=== PATIENT | male | born 1945 | race Caucasian/White ===

== ENCOUNTER 2024-04-05 22:21 | Emergency (ER) | payer MEDICARE, OTHER, SELFPAY ==
[2024-04-05 22:22] VITALS: BP 163/85
--- NOTE | 2024-04-05 23:50 | ED.GENMED ---
History of Present Illness
General
Chief Complaint: Skin Problem
Source: patient
Exam Limitations: none
Time Seen by Provider: 04/05/24 23:37
Travel History
Have you had any contact with someone who has COVID-19?: No
Do you have any symptoms of coronavirus? Fever > 100 degrees, chills, cough, shortness of breath, sore throat, loss of taste or smell, muscle aches, or headache?: No
History of Present Illness
History of Present Illness:
See MDM
Past History
Past History
ED Past Medical History: Arrthythmia (Atrial fib), CAD, HTN, Hypercholesterolemia and Other (sleep apnea, )
ED Past Surgical History: Cardiac (stent, Ablation) and Other (Fracture Jaw that was wired)
Social History
Tobacco: Non-smoker
Alcohol: None
Personal:
Living: with family
Phy Exam
Physical Exam
Physical Exam:
See MDM
Course
Orders/Labs/Results
Orders:
Orders
04/05/24 23:21
Complete Blood Count/With Diff Urgent
Comprehensive Metabolic Panel Urgent
04/06/24 00:00
US Periph Venous LOWER Ext Ivan Urgent
Reason For Exam: b/l leg swelling
Abnormal Lab Results
04/06/24
00:02
RBC 3.88 L 10^6/uL
(4.70-6.10)
Hgb 12.1 L g/dL
(13.0-18.0)
Hct 36.7 L %
(39.0-52.0)
MCV 94.6 H fL
(80.0-94.0)
MCH 31.2 H pg
(27.0-31.0)
Abs Immat Gran (auto) 0.1 H 10^3/uL
(0-0.05)
Absolute Monos (auto) 0.7 H 10^3/uL
(0.1-0.6)
Immature Gran % 0.7 H %
(0-0.5)
Lymphocytes % 19.7 L %
(20.5-51.1)
BUN 27 H mg/dl
(9-20)
04/06/24 00:02
04/06/24 00:02
Vital Signs
Initial and Last Documented VS:
Initial Vital Signs
Temp Pulse Resp BP Pulse Ox
98.7 F 78 16 163/85 99
04/05/24 22:22 04/05/24 22:22 04/05/24 22:22 04/05/24 22:22 04/05/24 22:22
Last Documented Vital Signs
Temp Pulse Resp BP Pulse Ox
98.7 F 78 16 163/85 99
04/05/24 22:22 04/05/24 22:22 04/05/24 22:22 04/05/24 22:22 04/05/24 22:22
MDM/Problems Addressed
Differential Diagnosis Includes:
HPI and MDM Narrative:
79-year-old male presenting with bilateral leg swelling. Patient received his first dose of Lecanemab on Tuesday to treat early onset dementia. He developed mild muscle aches and headache on Tuesday but symptoms resolved. He woke up this
morning with bilateral leg swelling and redness. He was started on emergency department to rule out DVT
at bedside stating that the redness to both legs has drastically improved without intervention over the past several hours.
Given the medicine and the side effect profile, will obtain ultrasound rule out DVT
Physical exam
General: Well appearing and non-toxic
HEENT: protecting airway
Neck: appears supple
CV: No evidence of cyanosis
Resp: No accessory muscle use
Abd: Non-distended
Extremities: mild erythema to bilateral calfs. Distal extremity is neurovascular intact
Neuro: alert
Psych: Normal affect
Skin: Intact
Problems Addressed including Acute and Chronic Conditions affecting care:
1. Bilateral calf tenderness and erythema
Acuity: acute
Prognosis: stable
Details: Likely related to medication side effect. Will obtain ultrasound rule DVT. Given rapidly resolving symptoms, doubt cellulitis
Updates
Ultrasound negative for DVT. Patient and daughter will follow-up with neurology tomorrow
Differential Diagnosis (but not limited to): Cellulitis, DVT, medication side effect
Testing considered: Blood cultures
Drug therapy (if applicable): OTC meds, please see d/c instruction regarding Rx drugs
Amount and/or Complexity of Data Reviewed
Clinical info obtained from: Patient. states symptoms are improving
External data reviewed: N/A
Labs I independently reviewed (but not limited to): WBC normal
Radiology: N/A
Pulse Ox: not hypoxic
EKG independently reviewed: N/A
Service Delivery Management Consultant: N/A
Critical Care: N/A
Risk of Complication:
Social Determinants of health: Good social support
Discussed with other providers: N/A
Escalation of Care includes Admit/Obs: After being observed in the Emergency Department, pt stable for discharge.
Occasional wrong word or 'sound a like' substitutions may have occurred due to the inherent limitations of voice recognition software. Read the chart carefully and recognize, using context, where substitutions have occurred.
*Critical Care Note
Total Time (30-74mins, 75-104mins- exclusive of procedures): Not Applicable
ED Attending Note
-
Portions of this chart may have been created with voice recognition software.� Occasional wrong word or��sound alike� substitutions may have occurred due to the inherent limitations of voice recognition software.
Discharge Plan
Departure
Patient Disposition: Home (Routine Discharge)
Date of Disposition: 04/06/24
Time of Disposition: 02:00
Patient with high blood pressure during this ER visit?: Yes
Discharge Problem:
Adverse effect of drug
Instructions: BLOOD PRESSURE
Prescriptions:
No Action
metoprolol succinate 50 MG tablet extended release 24 hr
50 mg PO BID
Patient Comments:
1/2 tab in am, 1/2 in pm
verapamil 180 MG tablet extended release
180 mg PO DAILY
aspirin 81 MG tablet,delayed release (DR/EC)
81 mg PO DAILY
warfarin 5 MG tablet
5 mg PO DAILY
magnesium oxide 250 MG tablet
250 mg PO
Patient Comments:
as directed
docosahexaenoic acid-epa 1 CAP capsule
1 cap PO
Patient Comments:
take as directed
ezetimibe-simvastatin 10 MG/40 MG tablet
1 tab PO DAILY
mm-xjs-IF-Vv-Rc-jpdrite-lutein 1 EACH tablet
1 tab PO DAILY
VITAMIN D
Patient Comments:
as directed
Referrals:
Lola Iniguez MD [Family Provider] -
Activity Restrictions/Additional Instructions:
As we discussed, I do not think it is an allergic reaction. I think he is having an adverse reaction to the drug. Please talk to the neurologist tomorrow. Please return for worsening symptoms.
Interventions
Interventions:
*Risk Screen - Suicide Last Done: 04/06/24 00:02
*General Assessment Last Done: 04/05/24 22:22
*Neglect/Abuse Screening Last Done: 04/06/24 00:02
Discharge Date and Time
Print Language: AMERICAN
[2024-04-06 00:24] LABS: ALT (SGPT) 18 U/L (0-50); AST (SGOT) 25 U/L (17-59); Albumin 3.9 g/dl (3.5-5.0); Alkaline Phosphatase 98 U/L (38-126); Blood Urea Nitrogen 27 mg/dl (9-20); Calcium 8.9 mg/dl (8.4-10.2); Carbon Dioxide 29 mmol/L (22-30); Chloride 103 mmol/L (98-107); Glucose 98 mg/dl (70-99); Potassium 4.3 mmol/L (3.5-5.1); Sodium 139 mmol/L (135-145); Total Bilirubin 0.8 mg/dl (0.2-1.3); Total Protein 6.9 g/dl (6.3-8.2); eGFR > 60.00
[2024-04-06 00:31] LABS: % Basophils 0.6 % (0-2); % Eosinophils 1.6 % (0-6); % Immature Granulocytes 0.7 % (0-0.5); % Lymphocytes 19.7 % (20.5-51.1); % Monocytes 8.5 % (1.7-9.3); % Neutrophils 68.9 % (42.2-75.2); Absolute Basophils 0.1 10^3/uL (0-0.2); Absolute Eosinophils 0.1 10^3/uL (0-0.7); Absolute Immature Granulocytes 0.1 10^3/uL (0-0.05); Absolute Lymphocytes 1.6 10^3/uL (1.2-3.4); Absolute Monocytes 0.7 10^3/uL (0.1-0.6); Absolute Neutrophils 5.6 10^3/uL (1.4-6.5); Hematocrit 36.7 % (39.0-52.0); Hemoglobin 12.1 g/dL (13.0-18.0); Mean Corpuscular Hgb 31.2 pg (27.0-31.0); Mean Corpuscular Volume 94.6 fL (80.0-94.0); Mean Platelet Volume 10.1 fL (7.4-10.4); Nucleated Red Blood Cells % 0 % (-); Platelet Count 144 10^3/uL (130-400); Red Blood Cell Count 3.88 10^6/uL (4.70-6.10); Red Cell Dist. Width 13.1 % (11.5-14.5); White Blood Cell Count 8.1 10^3/uL (4.8-10.8)
[2024-04-06 02:15] VITALS: BP 125/78
== END 2024-04-06 02:20 | disposition home or self-care (01) ==
LOC: EMR 22:21
PROVIDERS: EMERGENCY PHYSICIAN Student in an Organized Health Care Education/Training Program; FAMILY PHYSICIAN Internal Medicine
DX: R51.9 Headache, unspecified (principal); R60.0 Localized edema; M79.604 Pain in right leg; M79.605 Pain in left leg; M79.10 Myalgia, unspecified site; T50.995A Adverse effect of other drugs, medicaments and biological substances, initial encounter; F03.90 Unspecified dementia, unspecified severity, without behavioral disturbance, psychotic disturbance, mood disturbance, and anxiety; I10 Essential (primary) hypertension; E78.00 Pure hypercholesterolemia, unspecified; I48.91 Unspecified atrial fibrillation; I25.10 Atherosclerotic heart disease of native coronary artery without angina pectoris; G47.30 Sleep apnea, unspecified; Z95.5 Presence of coronary angioplasty implant and graft; Z79.82 Long term (current) use of aspirin
CPT/HCPCS: 99284; 80053; 85025; 93970

== ENCOUNTER 2025-05-14 07:22 | Emergency (ER) | payer MEDICARE, OTHER, SELFPAY ==
[2025-05-14 07:26] VITALS: BP 163/111
--- NOTE | 2025-05-14 07:49 | ED.GENMED ---
History of Present Illness
General
Chief Complaint: Heart Rate Problem
Source: patient, records and spouse
Exam Limitations: none
Time Seen by Provider: 05/14/25 07:36
Nursing documentation reviewed up to this point in time: agreed with
History of Present Illness
History of Present Illness:
80-year-old male with past medical history of hypertension, hyperlipidemia, CAD, atrial fibrillation status post watchman presents to the emergency room with his for evaluation of chest discomfort. Patient says that he woke up this morning and
was feeling well and did some minor chores and when he sat down noticed that he was having some discomfort in his chest. He says it feels like a vague tightness in the chest. He denies any associated shortness of breath to me although apparently
mention shortness of breath in triage. He denies feeling dizzy or lightheaded. He denies feeling palpitations or racing heart. He denies any other acute complaints and says he was at his normal state of health prior to onset has not been sick
recently. In triage she was noted to be in A-fib with RVR. He says it has been years since his last episode of A-fib. He does take metoprolol but is not on blood thinner status post Watchman procedure. His normal pathology tech is Dr. Weber
through [facility] but he is planning to switch to [facility]�has not yet scheduled an appointment but is hoping to see Dr. Healy.
Past History
Past History
ED Past Medical History: Arrthythmia (Atrial fib), CAD, HTN, Hypercholesterolemia and Other (sleep apnea, )
ED Past Surgical History: Cardiac (stent, Ablation) and Other (Fracture Jaw that was wired)
Social History
Tobacco: Non-smoker
Alcohol: None
Personal:
Living: with family
Review of Systems
Review of Systems
All Other Systems: ROS reviewed and negative except as documented in HPI and ROS
Constitutional: Denies fever or chills
Respiratory: Denies trouble breathing
Cardiac: Reports chest pain; Denies palpitations or syncope
ABD/GI: Denies abdominal pain, nausea, vomiting or diarrhea
: Denies flank pain
Musculoskeletal: Denies neck pain or back pain
Neurological: Denies dizzy or headache
Phy Exam
Physical Exam
Physical Exam:
General: Awake, alert, oriented x3; no acute distress
Head: Normocephalic, atraumatic
Eyes: Conjunctiva normal, pupils equal round reactive to light bilaterally
Throat: Airway intact, handling secretions
Neck: Trachea midline, supple without meningismus
Lungs: Clear to auscultation bilaterally, no wheezing, rales, rhonchi
Heart: Tachycardia with irregularly irregular rhythm, no murmurs, gallops, or rubs
Abd: Soft, non distended, nontender
Neuro: No gross deficits
Extremities: No edema in extremities, equal pulses in all extremities
Scores
Heart Failure Risk
Heart Failure Risk Score: Not Applicable
Heart Score for Chest Pain Patients
STEMI patient?: Not applicable
Withdrawal Assessment of Alcohol
Withdrawal Assessment Completed?: Not applicable
Course
Orders/Labs/Results
Orders:
Orders
05/14/25 07:28
EKG [Electrocardiogram (*1)] Urgent
Reason for Study: Tachycardia
05/14/25 07:29
EKG- Treatment ONCE
05/14/25 07:49
0.9% Sodium Chloride 500 ml [Nss] 500 ml IV BOLUS
Diltiazem HCl [Cardizem] 10 mg IV NOW STA
05/14/25 08:19
Complete Blood Count/With Diff Urgent
Comprehensive Metabolic Panel Urgent
Prothrombin Time Urgent
Troponin I Urgent
05/14/25 09:52
Metoprolol Xl [Toprol Xl] 12.5 mg PO NOW STA
Abnormal Lab Results
05/14/25
08:19
MCV 95.1 H fL
(80.0-94.0)
MCHC 32.2 L g/dL
(33.0-37.0)
MPV 10.7 H fL
(7.4-10.4)
Monocytes % 11.0 H %
(1.7-9.3)
BUN 27 H mg/dl
(9-20)
Glucose 103 H mg/dl
(70-99)
Total Protein 8.5 H g/dl
(6.3-8.2)
05/14/25 08:19
05/14/25 08:19
Vital Signs
Initial and Last Documented VS:
Initial Vital Signs
Temp Pulse Resp BP Pulse Ox
36.4 C 138 18 163/111 98
05/14/25 07:26 05/14/25 07:26 05/14/25 07:26 05/14/25 07:26 05/14/25 07:26
Last Documented Vital Signs
Temp Pulse Resp BP Pulse Ox
36.4 C 87 13 116/79 98
05/14/25 07:26 05/14/25 09:15 05/14/25 09:15 05/14/25 09:12 05/14/25 09:15
MDM/Problems Addressed
Differential Diagnosis Includes:
Symptomatic A-fib, less likely ACS, less likely anemia
MDM/Problems Addressed:
80-year-old male presents to the ER for evaluation of chest discomfort that started this morning; noted to be in A-fib with RVR on arrival. He has a known history of A-fib and is status post Watchman procedure, takes metoprolol. Vital signs are
significant for hypertension and tachycardia. Physical exam as above. Patient was brought back to room and placed on groundwater monitoring technician. Will place an IV check labs including CBC and CMP. Will check troponin although suspect symptoms are from rapid
atrial fibrillation rather than anginal. I spoke with patient about treatment options for atrial fibrillation including cardioversion versus rate control. Patient does not wish to have cardioversion procedure and so we will proceed with rate
control. Will provide some fluids and IV diltiazem. Reassess after the above.
Labs reviewed: CBC and CMP unremarkable. Troponin undetectable. Heart rate 80s after a dose of diltiazem. He remains in A-fib. He is asymptomatic on reassessment. He is stable for discharge. He is normally on Toprol-XL 12.5 mg nightly. Will
increase to 12.5 mg twice daily and give a dose by mouth prior to discharge. Will refer to cardiology for expeditious follow-up. Patient comfortable with this plan. All questions answered.
Chronic conditions affecting care:
Atrial fibrillation
Acute Exacerbation and/or Progression of Chronic Illness:
Acutely hypertensive
Acute Exacerbation and/or Progression of Chronic Illness: HTN
*Pulse Oximetry
SaO2: 98
Oxygen Mode of Delivery: Room air
Patient hypoxic: no (98%)
*EKG
Interpreted by ED Provider?: Yes
Comparison EKG: changes noted (A-fib with RVR)
Heart Rate: 121
Rate: tachycardiac
Rhythm: a-fib
[place]: left axis deviation
Interval: normal interval
QRS Pattern: other (Left anterior fascicular block)
Ischemia: non-specific ST changes
*Critical Care Note
Total Time (30-74mins, 75-104mins- exclusive of procedures): Not Applicable
Data Reviewed
Review of Other/Old Records Reveals: Labs and Records
Source: patient, records and spouse
ED Attending Note
-
Portions of this chart may have been created with voice recognition software.� Occasional wrong word or��sound alike� substitutions may have occurred due to the inherent limitations of voice recognition software.
Discharge Plan
Departure
Patient Disposition: Home (Routine Discharge)
Date of Disposition: 05/14/25
Time of Disposition: 09:42
Patient with high blood pressure during this ER visit?: Yes
Discharge Problem:
Atrial fibrillation
Instructions: Atrial Fibrillation (DC), Chest Pain DCA Follow Up
Prescriptions:
No Action
metoprolol succinate 50 MG tablet extended release 24 hr
50 mg PO BID
Patient Comments:
1/2 tab in am, 1/2 in pm
verapamil 180 MG tablet extended release
180 mg PO DAILY
aspirin 81 MG tablet,delayed release (DR/EC)
81 mg PO DAILY
warfarin 5 MG tablet
5 mg PO DAILY
magnesium oxide 250 MG tablet
250 mg PO
Patient Comments:
as directed
docosahexaenoic acid-epa 1 CAP capsule
1 cap PO
Patient Comments:
take as directed
ezetimibe-simvastatin 10 MG/40 MG tablet
1 tab PO DAILY
at-amk-RA-Zw-Sa-jyvniql-lutein 1 EACH tablet
1 tab PO DAILY
VITAMIN D
Patient Comments:
as directed
Referrals:
Kerry Ponce PA-C [Family Provider, Family Practice]
Ondina Healy MD [Active, Cardiology] - Call in 1-3 days for appt
Activity Restrictions/Additional Instructions:
Thank you for visiting the Emergency Department at [facility].
1. Please schedule a follow up appointment as directed. Call first thing tomorrow morning to make an appointment.
2. If indicated, please take your medications as instructed and indicated on discharge paperwork.
3. If any of your symptoms do not improve, or persist, or become more severe within 6-12 hours, please return to the emergency department for further care.
4. Please return to the emergency department if you develop a headache, neck pain/stiffness, fever greater than 100.4F, chest pain, shortness of breath, persistent nausea, vomiting, slurred speech, difficulty walking, numbness/tingling, weakness,
signs of infection or any other symptoms that are worrisome to you.
Please call [phone] if you have any questions.
Interventions
Interventions:
*Risk Screen - Suicide Last Done: 05/14/25 07:26
*General Assessment Last Done: 05/14/25 07:26
*ED COVID-19 Vaccine History Last Done: 05/14/25 07:26
Discharge Date and Time
Print Language: COMORAN
[2025-05-14 08:00] VITALS: BMI 36.4
[2025-05-14 08:20] VITALS: BP 160/116
[2025-05-14] MEDS: CARDIZEM 10 MG IV (08:21)
[2025-05-14] MEDS: NSS 500 IV (08:22)
[2025-05-14 08:36] LABS: Hematocrit 45.0 % (39.0-52.0); Hemoglobin 14.5 g/dL (13.0-18.0); Mean Corp Hgb Conc. 32.2 g/dL (33.0-37.0); Mean Corpuscular Volume 95.1 fL (80.0-94.0); Nucleated Red Blood Cells % 0 % (-); Platelet Count 139 10^3/uL (130-400); Red Cell Dist. Width 13.0 % (11.5-14.5)
[2025-05-14 08:37] VITALS: BP 128/87
[2025-05-14 08:41] LABS: INR 0.99; PT 13.4 Sec (11.4-14.6)
[2025-05-14 08:43] LABS: ALT (SGPT) 21 U/L (0-50); AST (SGOT) 26 U/L (17-59); Albumin 5.0 g/dl (3.5-5.0); Alkaline Phosphatase 96 U/L (38-126); Blood Urea Nitrogen 27 mg/dl (9-20); Calcium 9.5 mg/dl (8.4-10.2); Carbon Dioxide 28 mmol/L (22-30); Chloride 105 mmol/L (98-107); Estimated Creatinine Clearance 67 ml/min; Glucose 103 mg/dl (70-99); Potassium 4.5 mmol/L (3.5-5.1); Sodium 142 mmol/L (135-145); Total Protein 8.5 g/dl (6.3-8.2); eGFR > 60.00
[2025-05-14 08:54] LABS: Troponin I < 0.012 ng/ml
[2025-05-14 09:00] VITALS: BP 128/83
[2025-05-14 09:12] VITALS: BP 116/79
[2025-05-14 10:00] VITALS: BP 144/86
== END 2025-05-14 11:20 | disposition home or self-care (01) ==
LOC: EMR 07:22
PROVIDERS: EMERGENCY PHYSICIAN Emergency Medicine; FAMILY PHYSICIAN Student in an Organized Health Care Education/Training Program
DX: I48.91 Unspecified atrial fibrillation (principal); I10 Essential (primary) hypertension; E78.00 Pure hypercholesterolemia, unspecified; I25.10 Atherosclerotic heart disease of native coronary artery without angina pectoris; G47.30 Sleep apnea, unspecified; Z95.5 Presence of coronary angioplasty implant and graft
CPT/HCPCS: 99283; 96374; 96361; 80053; 84484; 85025; 85610; 93005

== ENCOUNTER 2025-05-25 00:32 | Inpatient (IN) | payer MEDICARE, OTHER, SELFPAY ==
[2025-05-24] VITALS (12 sets, daily range): BP systolic 102–161; BP diastolic 69–124; BMI 36.0
[2025-05-24 13:58] LABS: Hematocrit 45.1 % (39.0-52.0); Hemoglobin 14.5 g/dL (13.0-18.0); Mean Corp Hgb Conc. 32.2 g/dL (33.0-37.0); Mean Corpuscular Volume 97.0 fL (80.0-94.0); Nucleated Red Blood Cells % 0 % (-); Platelet Count 144 10^3/uL (130-400); Red Cell Dist. Width 13.2 % (11.5-14.5)
[2025-05-24 14:52] LABS: Blood Urea Nitrogen 22 mg/dl (9-20); Calcium 9.3 mg/dl (8.4-10.2); Carbon Dioxide 24 mmol/L (22-30); Chloride 106 mmol/L (98-107); Glucose 106 mg/dl (70-99); Sodium 140 mmol/L (135-145); eGFR > 60.00
--- NOTE | 2025-05-24 16:42 | CON.CAR ---
Addendum entered and electronically signed by Graham Lawrence DO 05/24/25 17:35:
I saw and examined the patient.
The Drill Presser's note was reviewed and I agree with the note.
Comment:
GENERAL: no acute distress
EYE: sclera anicteric
NECK: Supple, no JVD, no carotid bruit appreciated
ENT: normal nose, moist mucosal membranes
CARDIAC: Irregularly irregular, +S1/S2, no murmur, rubs, or gallops
CHEST/PULMONARY: Normal effort, clear breath sounds
ABDOMEN: Soft, without focal tenderness or distention
NEUROLOGICAL: Alert and oriented x3
SKIN: Warm and dry, no rash
PSYCH: Normal and appropriate interaction.
Telemetry shows AFL versus AF with RVR 148 bpm
ECG SVT at 148 bpm however likely 2 to 1 AFL
A/P as below
Check 2D echocardiogram, lab work including thyroid function
Chest x-ray
IV Cardizem for rate control with up titration of oral medications as tolerated
Tentative RED Tuesday if patient remains in atrial arrhythmia; patient has Watchman device implanted (2022) not on anticoagulation due to Alzheimer's infusion medications
Appreciate input by primary service
Discussed with nursing, family
Original Note:
Consultation
Consultation Request
Date/Time Consultation Requested: 05/24/2025
Date/Time Consultation Performed: 05/24/2025
Requesting Provider: Dr. Kyle
Performing Provider: Patti Jasso PA-C for Dr. Lawrence
Reason for Consultation: Afib w/ RVR
Medical History
-
Chief Complaint: elevated HR
History of Present Illness:
Trung is an 80-year-old male with past medical history of CAD with prior PTCA of the LAD in 2009, hypertension, hyperlipidemia, and paroxysmal atrial fibrillation with prior ablation in 2012. He was recently seen in [facility] ER on 05/14/2025 for
evaluation of chest discomfort/tightness. He was found to be in A-fib with RVR. At the time, he was given IV fluids and diltiazem and heart rates improved. His Toprol dose was increased and he was arranged for outpatient cardiology follow-up
visit. He has continued to have elevated heart rates since that time, despite additional med adjustments (cardizem cd was added) and came back into ER for evaluation again today, 05/24/2025. Remains in rapid A-fib with heart rate 148 bpm by initial
ECG. Minimally symptomatic, however given persistent tachycardia, cardiology evaluation requested in ER. He was given a dose of 10 mg IV diltiazem and heart rates remain elevated. He is not chronically on anticoagulation due to prior watchman in
2022. He is on a medication for his Alzheimer's which puts him at increased bleeding risk on anticoagulation, hence why he received watchman. He is transitioning his care from [facility], previously followed by Dr. Weber, to [facility], Dr. Robbins.
He is scheduled for an appointment Monday 05/28.
PMH:
CAD
h/o PTCA of LAD 03/2010
HTN
HLD
Paroxysmal atrial fibrillation
h/o ablation in 2012
s/p watchman implant 08/31/2023
Alzheimer's
Past Medical History
Past Medical History: Other (In HPI)
Past Surgical History: Other (PTCA of LAD 03/2010, ablation 2012, watchman implant 08/2023, cataract surgery 2019)
Social History
Tobacco: Non-Smoker
Alcohol: None
Drug: None
Personal:
Living: With Family
Family History
Family History: Reviewed & Not Pertinent
Allergies / Home Medications
Allergy/AdvReac Type Severity Reaction Status Date / Time
No Known Allergies Allergy Verified 05/24/25 13:34
�Medication �Instructions �Recorded �Confirmed �Type
VITAMIN D 03/30/10 03/30/10 History
aspirin 81 mg tablet,delayed 81 mg PO DAILY 03/30/10 03/30/10 History
release
docosahexaenoic acid (dha)-epa 120 1 cap PO 03/30/10 03/30/10 History
mg-180 mg capsule
ezetimibe 10 mg-simvastatin 40 mg 1 tab PO DAILY 03/30/10 03/30/10 History
tablet
magnesium oxide 250 mg PO 03/30/10 03/30/10 History
metoprolol succinate 50 mg 50 mg PO BID 03/30/10 03/30/10 History
tablet,extended release 24 hr
mdbuwrel-qjp-QX 0.4 mg-calcium 162 1 tab PO DAILY 03/30/10 03/30/10 History
mg-iron 18 yn-ukqftqm-tvgjja tablet
verapamil 180 mg tablet,extended 180 mg PO DAILY 03/30/10 03/30/10 History
release
warfarin 5 mg tablet 5 mg PO DAILY 03/30/10 03/30/10 History
Review of Systems
-
History Source: Patient and Family
All other systems: Negative unless noted
Physical Exam
Vital Signs
Temp Pulse Resp BP Pulse Ox
98.2 F 145 22 132/109 99
05/24/25 16:00 05/24/25 16:00 05/24/25 16:00 05/24/25 16:00 05/24/25 16:03
Lab Results
05/24/25 13:44
Physical Exam
General: No Apparent Distress, Comfortable and Other (obese)
HEENT: Normocephalic, Anicteric and Moist Mucous Membranes
Respiratory: Clear and Non Labored Respirations
Cardiac: S1/S2 and Irregular Rhythm
GI: Soft, Non Tender, Non Distended and Normal Bowel Sounds
Musculoskeletal: No Clubbing, No Cyanosis and No Edema
Skin: Warm and Dry
Neuro: AO x 3
Impression / Plan
-
PCP: Dr. Hector
Cardiology: Previously saw Dr. Weber, scheduled to see Dr. Robbins 8/5
Impression:
Presented with tachycardia
Paroxysmal atrial fibrillation w/ RVR, minimally symptomatic
h/o ablation in 2012
s/p watchman implant 08/31/2023
CAD
h/o PTCA of LAD 03/2010
HTN
HLD
Alzheimer's, mild
Plan:
- Recently seen in ER 05/14/2025 with recurrent rapid atrial fibrillation with history of ablation. Has had persistently elevated heart rates, prompting reevaluation in ER despite OP med adjustments
- Remains in rapid A-fib by initial ECG, reviewed by me. Heart rates in the 140s to 150s on review of telemetry.
- Status post 10 mg IV diltiazem given in ER. Will start Cardizem drip for rate control
- He is no longer on anticoagulation following watchman implant 08/2023. Reportedly no postop RED confirming adequacy of closure, would require RED/CV as he is no longer on anticoagulation, consider for Tuesday if does not convert spontaneously
- Continue ASA 81 mg alone.
- His Toprol was increased from 12.5 mg daily to 25 mg twice daily as an outpatient recently due to his rapid heart rates. Cardizem CD was also added to his regimen without improvement in tachycardia.
- His believes he previously was on Tikosyn for a short time preablation, however was stopped post ablation because he did not need it anymore, no intolerance. He otherwise has not been on antiarrhythmic drug therapy.
- Check echo.
- CXR pending
- Check K and mag. Check TSH. Denies history of thyroid disease
- Troponin pending.
- d/w patient and at bedside
HPI: Trung is an 80-year-old male with past medical history of CAD with prior PTCA of the LAD in 2009, hypertension, hyperlipidemia, and paroxysmal atrial fibrillation. He was recently seen in [facility] ER on 05/14/2025 for evaluation of chest
discomfort/tightness. He was found to be in A-fib with RVR. At the time, he was given IV fluids and diltiazem and heart rates improved. His Toprol dose was increased and he was arranged for outpatient cardiology follow-up visit. He has continued
to have elevated heart rates since that time, and came back into ER for evaluation again today, 05/24/2025. Remains in rapid A-fib with heart rate 148 bpm by initial ECG. Minimally symptomatic, however given persistent tachycardia, cardiology
evaluation requested in ER. He was given a dose of 10 mg IV diltiazem and heart rates remain elevated.
Data Reviewed
-
EKG: Tracing Personally Visualized and interpreted
Labs: Labs Reviewed by me
Old Records: Reviewed
[2025-05-24] MEDS: CARDIZEM 10 MG IV (17:01)
[2025-05-24] MEDS: CARDIZEM 125 IV (17:02)
[2025-05-24 17:30] LABS: Troponin I 0.033 ng/ml
[2025-05-24 17:38] LABS: Magnesium 1.9 mg/dl (1.6-2.3); Potassium 4.8 mmol/L (3.5-5.1)
--- NOTE | 2025-05-24 17:47 | ED.GENMED ---
History of Present Illness
<MORENA Weinberg Jr. Last Filed: 05/24/25 17:55>
General
Chief Complaint: Cardiac Symptoms
Source: patient
Exam Limitations: none
Time Seen by Provider: 05/24/25 16:04
Nursing documentation reviewed up to this point in time: agreed with
History of Present Illness
History of Present Illness:
80-year-old male past medical history of A-fib status post Watchman procedure not currently anticoagulated, CAD, hypertension presenting to the emergency department concerns of an elevated heart rate that has been persisting over the past few days
despite taking initially metoprolol then being switched to Cardizem. Heart rate in the 140s at home. He denies any chest pain shortness of breath or palpitations at this time.
Past History
<MORENA Weinberg Jr. Last Filed: 05/24/25 17:55>
Past History
ED Past Medical History: Arrthythmia (Atrial fib), CAD, HTN, Hypercholesterolemia and Other (sleep apnea, )
ED Past Surgical History: Cardiac (stent, Ablation) and Other (Fracture Jaw that was wired)
Social History
Tobacco: Non-smoker
Alcohol: None
Personal:
Living: with family
Review of Systems
<MORENA Weinberg Jr. Last Filed: 05/24/25 17:55>
Review of Systems
Allergies reviewed?: Yes
All Other Systems: ROS reviewed and negative except as documented in HPI and ROS
Phy Exam
<MORENA Weinberg Jr. Last Filed: 05/24/25 17:55>
Physical Exam
Physical Exam:
GENERAL: Alert , in no apparent distress
EYE: pupils equal and reactive
NECK: Supple, no significant adenopathy.
ENT: o/p clr, mmm.
CARDIAC: Regular heart rate in the 140s no murmur
LUNGS: Clear breath sounds bilaterally, no acute respiratory distress, no wheezes/rales/rhonchi
ABDOMEN: Soft, without focal tenderness, no r/g, no cvat
NEUROLOGICAL: Alert and oriented, no focal neuro deficits
SKIN: Warm and dry, skin intact.
MUSCULOSKELETAL: No edema, well perfused.
PSYCH: Normal and appropriate interaction.
Course
<Jean-Claude Izaguirre Jr., MORENA - Last Filed: 05/24/25 17:55>
Orders/Labs/Results
Orders:
Orders
05/24/25 13:35
Electrocardiogram (*1) Urgent
Reason for Study: Atrial Fibrillation
05/24/25 13:36
EKG- Treatment ONCE
05/24/25 13:44
Basic Metabolic Panel Urgent
Complete Blood Count/With Diff Urgent
05/24/25 16:19
Diltiazem HCl [Cardizem] 10 mg IV NOW STA
05/24/25 16:29
Chest [CR Chest - 2 Views ] Urgent
Comment:
Reason For Exam: afib,
05/24/25 16:57
Magnesium Urgent
Comment: ADD ON
Potassium Urgent
TSH Reflex To Free T4 Urgent
Comment: ADD ON
Troponin I Urgent
05/24/25 16:59
Diltiazem 125 mg/125 ml Nss [Cardizem] 125 mg in 125 ml IV NOW
Initial dose in mg/hr, then titrate:: 5
Titrate to keep:: Heart rate 80-100 bpm
Titrate by mg/hr:: 5 mg/hr
Frequency of titrations (minutes):: 15
Maximum dose in mg/hr:: 15
05/24/25 17:00
Diltiazem 125 mg/125 ml Nss [Cardizem] 125 mg in 125 ml .ROUTE .STK-MED
05/24/25 17:03
Add On- LAB Routine
Tests Added?: TSH w/ reflex to free T4, magnesium
05/27/25 07:00
Echo 2D MMode Color/Doppler Routine
Reason for Study: Afib w/ RVR, CP
Abnormal Lab Results
05/24/25
13:44
RBC 4.65 L 10^6/uL
(4.70-6.10)
MCV 97.0 H fL
(80.0-94.0)
MCH 31.2 H pg
(27.0-31.0)
MCHC 32.2 L g/dL
(33.0-37.0)
MPV 11.3 H fL
(7.4-10.4)
Abs Immat Gran (auto) 0.1 H 10^3/uL
(0-0.05)
Absolute Neuts (auto) 6.7 H 10^3/uL
(1.4-6.5)
Absolute Monos (auto) 0.9 H 10^3/uL
(0.1-0.6)
BUN 22 H mg/dl
(9-20)
Glucose 106 H mg/dl
(70-99)
05/24/25 13:44
05/24/25 16:57
Vital Signs
Initial and Last Documented VS:
Initial Vital Signs
Temp Pulse Resp BP Pulse Ox
98.6 F 150 18 161/124 98
05/24/25 13:27 05/24/25 13:27 05/24/25 13:27 05/24/25 13:27 05/24/25 13:27
Last Documented Vital Signs
Temp Pulse Resp BP Pulse Ox
98 F 147 14 112/78 97
05/24/25 17:00 05/24/25 18:15 05/24/25 18:15 05/24/25 17:45 05/24/25 18:15
<Juan Kyle MD - Last Filed: 05/24/25 18:22>
Orders/Labs/Results
Orders:
Orders
05/24/25 13:35
Electrocardiogram (*1) Urgent
Reason for Study: Atrial Fibrillation
05/24/25 13:36
EKG- Treatment ONCE
05/24/25 13:44
Basic Metabolic Panel Urgent
Complete Blood Count/With Diff Urgent
05/24/25 16:19
Diltiazem HCl [Cardizem] 10 mg IV NOW STA
05/24/25 16:29
Chest [CR Chest - 2 Views ] Urgent
Comment:
Reason For Exam: afib,
05/24/25 16:57
Magnesium Urgent
Comment: ADD ON
Potassium Urgent
TSH Reflex To Free T4 Urgent
Comment: ADD ON
Troponin I Urgent
05/24/25 16:59
Diltiazem 125 mg/125 ml Nss [Cardizem] 125 mg in 125 ml IV NOW
Initial dose in mg/hr, then titrate:: 5
Titrate to keep:: Heart rate 80-100 bpm
Titrate by mg/hr:: 5 mg/hr
Frequency of titrations (minutes):: 15
Maximum dose in mg/hr:: 15
05/24/25 17:00
Diltiazem 125 mg/125 ml Nss [Cardizem] 125 mg in 125 ml .ROUTE .STK-MED
05/24/25 17:03
Add On- LAB Routine
Tests Added?: TSH w/ reflex to free T4, magnesium
05/27/25 07:00
Echo 2D MMode Color/Doppler Routine
Reason for Study: Afib w/ RVR, CP
Abnormal Lab Results
05/24/25
13:44
RBC 4.65 L 10^6/uL
(4.70-6.10)
MCV 97.0 H fL
(80.0-94.0)
MCH 31.2 H pg
(27.0-31.0)
MCHC 32.2 L g/dL
(33.0-37.0)
MPV 11.3 H fL
(7.4-10.4)
Abs Immat Gran (auto) 0.1 H 10^3/uL
(0-0.05)
Absolute Neuts (auto) 6.7 H 10^3/uL
(1.4-6.5)
Absolute Monos (auto) 0.9 H 10^3/uL
(0.1-0.6)
BUN 22 H mg/dl
(9-20)
Glucose 106 H mg/dl
(70-99)
05/24/25 13:44
05/24/25 16:57
Vital Signs
Initial and Last Documented VS:
Initial Vital Signs
Temp Pulse Resp BP Pulse Ox
98.6 F 150 18 161/124 98
05/24/25 13:27 05/24/25 13:27 05/24/25 13:27 05/24/25 13:27 05/24/25 13:27
Last Documented Vital Signs
Temp Pulse Resp BP Pulse Ox
98 F 147 14 112/78 97
05/24/25 17:00 05/24/25 18:15 05/24/25 18:15 05/24/25 17:45 05/24/25 18:15
<Jean-Claude Izaguirre Jr., PA-C - Last Filed: 05/24/25 17:55>
MDM/Problems Addressed
MDM/Problems Addressed:
80-year-old male presenting to the emergency department today with concerns of elevated heart rate. Patient appears to be in atrial flutter with 2-1 block heart rate in the 140s to 150. Blood pressure in the 120s over 100. Labs at patient's
baseline. Troponin negative. Case discussed with cardiology recommended control of Cardizem and admit for monitoring and potential RED cardioversion in the future.
<Jean-Claude Izaguirre Jr., PA-C - Last Filed: 05/24/25 17:55>
*Pulse Oximetry
SaO2: 98
Oxygen Mode of Delivery: Room air
Patient hypoxic: no (98)
*Critical Care Note
Total Time (30-74mins, 75-104mins- exclusive of procedures): Not Applicable
ED Attending Note
<Jean-Claude Izaguirre Jr., PA-C - Last Filed: 05/24/25 17:55>
-
Portions of this chart may have been created with voice recognition software.� Occasional wrong word or��sound alike� substitutions may have occurred due to the inherent limitations of voice recognition software.
<Juan Kyle MD - Last Filed: 05/24/25 18:22>
ED Attending Note
Patient seen and examined by attending physician: Yes
I performed the substantive portion of visit, reviewed & personally made and approve the management plan that is documented in note by myself or TEETEE.: Yes
ED Attending Note:
80-year-old male asymptomatic but noted to have ongoing rapid heartbeat. Was seen a week and a half ago for same. Adjustments to his rate control meds. Persistent tachycardia. No chest pain shortness of breath syncope or other complaints
On exam patient is nontoxic in no distress. Lungs are clear and equal. Heart tachycardic and regular no murmur. Abdomen soft and nontender. Warm and dry. Perfusing well.
EKG likely 2-1 flutter. Rate in the 140s. No signs of heart failure. Given ongoing atrial flutter/RVR requires inpatient rate control.
Discharge Plan
Departure
Patient Disposition: Admit
Date of Disposition: 05/24/25
Time of Disposition: 17:54
Admit to: Telemetry
Admit to doctor: Terri
Presentation/result/management discussed w/ accepting MD/DO: Hospitalist
Patient with high blood pressure during this ER visit?: No
Condition: Good
Covid-19: Not Applicable
Discharge Problem:
Atrial flutter with rapid ventricular response
Prescriptions:
No Action
metoprolol succinate 50 MG tablet extended release 24 hr
50 mg PO BID
Patient Comments:
1/2 tab in am, 1/2 in pm
aspirin 81 MG tablet,delayed release (DR/EC)
81 mg PO DAILY
Referrals:
Kerry Ponce PA-C [Family Provider, Family Practice]
Interventions
Interventions:
*Risk Screen - Suicide Last Done: 05/24/25 13:27
*General Assessment Last Done: 05/24/25 13:27
*ED COVID-19 Vaccine History Last Done: 05/24/25 13:27
ED- Cardiac Assessment Last Done: 05/24/25 16:03
ED- Pulmonary Assessment Last Done: 05/24/25 16:03
Discharge Date and Time
Print Language: JAPANESE
[2025-05-25] VITALS (12 sets, daily range): BP systolic 109–142; BP diastolic 65–97; BMI 35.0
--- NOTE | 2025-05-25 00:11 | HPS.HSE ---
Family Physician
-
Family Physician: Kerry Ponce PA-C
Chief Complaint
-
Palpitations
History of Present Illness
This is an 80-year-old with past medical history of atrial fibrillation status post Watchman procedure, CAD, hypertension who presents to the emergency department with concern for elevated heart rate when last few days. Patient was initially taken
metoprolol and has been switched to Cardizem. Heart rates in the 140s at home. He denies any chest pain. Denies feeling dizzy or lightheaded.
Currently he has been rate controlled on diltiazem drip in the ED.
Went and saw the patient blood pressure was 102/81 pulse was 104 his temp was 98 and was satting 95% on room air. ECG initially showed atrial fibrillation/flutter at 148 with a troponin of 0.03. CBC is unremarkable. Electrolyte BUN/creatinine
were normal. Magnesium was 1.9. TSH was within the normal range.
Chest x-ray shows no acute infiltrates
Medical History
Past Medical History
Past Medical History: Reports Arrhythmia (Atrial fibrillation status post Watchman), HTN and Hypercholesterolemia
Past Surgical History: Reports Other
Social History
Tobacco: Non-smoker
Alcohol: None
Drug: None
Family History
Family History: Not pertinent
Allergies / Home Medications
Allergies reflects when Allergies were last updated in [employer].
Home Medications with original date entered in [employer]
Allergy/Medication List:
Allergies
Allergy/AdvReac Type Severity Reaction Status Date / Time
No Known Allergies Allergy Verified 05/24/25 13:34
Home Medications
aspirin 81 mg tablet,delayed release 81 mg PO DAILY 03/30/10
atorvastatin 80 mg tablet (Lipitor) 80 mg PO QPM 05/24/25
cholecalciferol (vitamin D3) 25 mcg (1,000 unit) tablet (Vitamin D3) 25 mcg PO DAILY 05/24/25
diltiazem HCl 30 mg tablet 30 mg PO BID 05/24/25
lisinopril 10 mg tablet 10 mg PO DAILY 05/24/25
metoprolol succinate 25 mg tablet,extended release 24 hr (Toprol XL) 12.5 mg PO QPM 05/24/25
metoprolol succinate 25 mg tablet,extended release 24 hr (Toprol XL) 25 mg PO DAILY 05/24/25
therapeutic multivitamin 1 tab PO DAILY 05/24/25
Review of Systems
-
Constitutional: Reports No Symptoms
EENT: Reports No Symptoms
Respiratory: Reports No Symptoms
Cardiac: Reports No Symptoms
Abdomen/GI: Reports No Symptoms
: Reports No Symptoms
Musculoskeletal: Reports No Symptoms
Skin: Reports No Symptoms
Neurological: Reports No Symptoms
Endocrine: Reports No Symptoms
Hematologic/Lymphatic: Reports No Symptoms
Psych: Reports No Symptoms
Physical Exam
Vital Signs
Vital Signs
Temp Pulse Resp BP Pulse Ox
98.0 F 104 15 102/81 95
05/24/25 23:00 05/24/25 23:30 05/24/25 23:30 05/24/25 23:30 05/24/25 23:30
Physical Exam
General: Well Developed, Well Nourished and No Apparent Distress
HEENT: NormoCephalic, Moist mucous membranes and Atraumatic
Respiratory: Clear
Cardiac: S1/S2 and Irregular Rhythm; No Murmur or Rub
GI: Soft, Non Tender, Non Distended and Normal Bowel Sounds; No Organomegaly
Rectal: Deferred by Provider
Musculoskeletal: No Clubbing, No Cyanosis and No Edema
Skin: No Rash
Neuro: AO x 3 and Nonfocal/grossly intact
Laboratory Results
-
05/24/25 13:44
05/24/25 16:57
Laboratory Results
Total Bilirubin Cancelled 05/24/25 13:44
AST Cancelled 05/24/25 13:44
ALT Cancelled 05/24/25 13:44
Alkaline Phosphatase Cancelled 05/24/25 13:44
Troponin I 0.033 ng/ml 05/24/25 16:57
Data Reviewed
-
Diagnostic Radiology: Image Personally Visualized and interpreted
Medical Tests (Nuc Med, Echo, EKG etc): Image Personally Visualized and interpreted
Lab Data: Labs Reviewed by me
Old Records: Reviewed
Impression/Plan
-
IMPRESSION:
Rapid atrial fibrillation
PLAN:
Rapid atrial fibrillation
-Admit to IVU
-Continue diltiazem drip
-Diet for now, then N.p.o. after midnight on Tuesday for RED Tuesday
-Patient is not currently anticoagulated, hold off anticoagulation now is status post Watchman
-Hold lisinopril
-Continue metoprolol
-Patient seen by cardiology Dr. Hughes
DVT prophylaxis�Lovenox subcu
CODE STATUS�full code
[2025-05-25 03:30] LABS: Hematocrit 44.2 % (39.0-52.0); Hemoglobin 14.4 g/dL (13.0-18.0); Mean Corp Hgb Conc. 32.6 g/dL (33.0-37.0); Mean Corpuscular Volume 97.1 fL (80.0-94.0); Platelet Count 126 10^3/uL (130-400); Red Cell Dist. Width 13.2 % (11.5-14.5)
[2025-05-25 03:42] LABS: Blood Urea Nitrogen 23 mg/dl (9-20); Calcium 9.0 mg/dl (8.4-10.2); Carbon Dioxide 26 mmol/L (22-30); Chloride 106 mmol/L (98-107); Estimated Creatinine Clearance 56 ml/min; Glucose 84 mg/dl (70-99); Magnesium 2.0 mg/dl (1.6-2.3); Potassium 4.2 mmol/L (3.5-5.1); Sodium 141 mmol/L (135-145); eGFR 55.19
--- NOTE | 2025-05-25 05:00 | PTCARENOTE ---
pt admitted to room 2244 with AFib RVR. Pt AAOx4. afib with HR 90-110BPM. Cardizem gtt per order. Pt denies any discomfort. Pt oriented to the room. Call maury w/in reach
--- NOTE | 2025-05-25 07:52 | W.PN.CARDCBS ---
Addendum entered and electronically signed by Graham Lawrence DO 05/25/25 09:33:
I saw and examined the patient.
The Top Polisher's note was reviewed and I agree with the note.
Comment:
A/P as below
Remains in atrial fibrillation with elevated rate
Increase IV diltiazem for now, resume beta-bay, uptitrate beta-bay and wean diltiazem as tolerated
Continue aspirin; not on anticoagulation due to Alzheimer's infusion medication and watchman
Tentative RED Tuesday
Original Note:
Today's Communication / Plan
-
Increase IV Cardizem
Continue Toprol
Continue aspirin
If remains in A-fib, will plan for RED/cardioversion on Tuesday
Impression / Plan
-
PCP: Dr. Hector
Cardiology: Previously saw Dr. Weber, scheduled to see Dr. Robbins 05/28
Impression:
Presented with tachycardia
Paroxysmal atrial fibrillation w/ RVR, minimally symptomatic
h/o ablation in 2012
s/p watchman implant 08/31/2023
CAD
h/o PTCA of LAD 03/2010
HTN
HLD
Alzheimer's, mild
Plan:
- Recently seen in ER 05/14/2025 with recurrent rapid atrial fibrillation with history of ablation. Has had persistently elevated heart rates, prompting reevaluation in ER 05/24/25 despite OP med adjustments
- Currently on IV Cardizem at 5 with heart rates in the 110s. Will increase IV Cardizem gtt to 10 and follow. Patient had some hypotension on IV Cardizem in ER, however blood pressures presently stable. Continue Toprol in addition
- He is no longer on anticoagulation following watchman implant 08/2023. Reportedly no postop RED confirming adequacy of closure, would require RED/CV as he is no longer on anticoagulation, consider for Tuesday if does not convert spontaneously
- Continue ASA 81 mg alone.
- His believes he previously was on Tikosyn for a short time preablation, however was stopped post ablation because he did not need it anymore, no intolerance. He otherwise has not been on antiarrhythmic drug therapy.
- Check echo.
- CXR without acute abnormalities
- TSH within normal limits
- Troponin 0.033, no chest pain.
- d/w via telephone. Discussed with nursing
HPI: Trung is an 80-year-old male with past medical history of CAD with prior PTCA of the LAD in 2009, hypertension, hyperlipidemia, and paroxysmal atrial fibrillation. He was recently seen in [facility] ER on 05/14/2025 for evaluation of chest
discomfort/tightness. He was found to be in A-fib with RVR. At the time, he was given IV fluids and diltiazem and heart rates improved. His Toprol dose was increased and he was arranged for outpatient cardiology follow-up visit. He has continued
to have elevated heart rates since that time, and came back into ER for evaluation again today, 05/24/2025. Remains in rapid A-fib with heart rate 148 bpm by initial ECG. Minimally symptomatic, however given persistent tachycardia, cardiology
evaluation requested in ER. He was given a dose of 10 mg IV diltiazem and heart rates remain elevated.
Progress Note - Instructional Media Services Technician
Subjective
Date of Service: May 25, 2025
No issues overnight
Objective
Labs:
05/25/25 02:38
05/25/25 02:38
Labs
Hgb 14.4 g/dL (13.0-18.0) 05/25/25 02:38
Hct 44.2 % (39.0-52.0) 05/25/25 02:38
Plt Count 126 10^3/uL (130-400) L 05/25/25 02:38
Sodium 141 mmol/L (135-145) 05/25/25 02:38
Potassium 4.2 mmol/L (3.5-5.1) 05/25/25 02:38
BUN 23 mg/dl (9-20) H 05/25/25 02:38
Creatinine 1.3 mg/dL (0.7-1.3) 05/25/25 02:38
Glucose 84 mg/dl (70-99) 05/25/25 02:38
Troponins
05/24/25
16:57
Troponin I 0.033
Vital Signs and I&O:
Vital Signs
Temp Pulse Resp BP Pulse Ox
97.4 F 121 16 139/94 98
05/25/25 07:46 05/25/25 07:39 05/25/25 07:46 05/25/25 07:39 05/25/25 07:46
Vital Signs
Temp Pulse Resp BP Pulse Ox
97.4 F 121 16 139/94 98
05/25/25 07:46 05/25/25 07:39 05/25/25 07:46 05/25/25 07:39 05/25/25 07:46
Physical Exam
Physical Exam
GEN: No distress, awake, alert, oriented x3. Obese. Sitting in chair
HEENT: supple, anicteric, mmm, EOMI
LUNGS: CTA bilaterally, no wheezes/rales
CV: Irreg, S1/S2, no murmur
ABD: soft, BS+, NT/ND
EXT: No cyanosis, clubbing, edema
NEURO: Gross non-focal
SKIN: Warm, pink, dry. No rash
[2025-05-25] MEDS: TOPROL XL 25 MG PO (08:05)
[2025-05-25] MEDS: ASPIR LOW (ENTERIC COATED) 81 MG PO (08:05)
--- NOTE | 2025-05-25 10:12 | PTCARENOTE ---
Cardizem gtt infusing at 10 ml/hr. Tele- afib. HR 90-110s. Pt has no complaints dizziness/pain/discomfort at this time. Assessment completed as documented. Plan of care reviewed w/ pt and verbalizes understanding.
[2025-05-25] MEDS: CARDIZEM 125 IV (11:22)
--- NOTE | 2025-05-25 12:19 | PTCARENOTE ---
Pt converted to SR w/ 1st deg. HR 60-70s. Ekg completed to confirm. Dr. Lawrence made aware.
--- NOTE | 2025-05-25 14:12 | W.PN.UPDATE ---
Update Note
Progress Note Update
Patient sanchez afebrile elevated heart rate
Increase IV Dilt, beta-bay continue, titrate up as needed
Anticipate RED/cardioversion Tuesday
Continue aspirin
Not anticoagulation due to Alzheimer infusion medication and watchman
[2025-05-25] MEDS: LIPITOR 80 MG PO (17:32)
[2025-05-25] MEDS: TOPROL XL 12.5 MG PO (17:32)
[2025-05-25] MEDS: LOVENOX 40 MG SC (17:32)
--- NOTE | 2025-05-25 23:41 | PTCARENOTE ---
Patient ambulating self in room w/out difficulty. Denies any pain or discomfort. Tele remains NSR w/ 1st AV block w/ occasional PACs/PVCs. HR in the 60's at rest. Patient and spouse (Florence) aware of POC. Call mendiola in reach.
[2025-05-26 04:21] VITALS: BP 140/88
[2025-05-26 04:56] LABS: Hematocrit 38.5 % (39.0-52.0); Hemoglobin 12.5 g/dL (13.0-18.0); Mean Corp Hgb Conc. 32.5 g/dL (33.0-37.0); Mean Corpuscular Volume 95.8 fL (80.0-94.0); Platelet Count 111 10^3/uL (130-400); Red Cell Dist. Width 13.2 % (11.5-14.5)
[2025-05-26 05:10] LABS: ALT (SGPT) 21 U/L (0-50); AST (SGOT) 20 U/L (17-59); Albumin 4.0 g/dl (3.5-5.0); Alkaline Phosphatase 90 U/L (38-126); Blood Urea Nitrogen 23 mg/dl (9-20); Calcium 9.1 mg/dl (8.4-10.2); Carbon Dioxide 26 mmol/L (22-30); Chloride 105 mmol/L (98-107); Estimated Creatinine Clearance 60 ml/min; Glucose 92 mg/dl (70-99); Magnesium 2.0 mg/dl (1.6-2.3); Potassium 4.7 mmol/L (3.5-5.1); Sodium 138 mmol/L (135-145); Total Protein 6.9 g/dl (6.3-8.2); eGFR > 60.00
--- NOTE | 2025-05-26 05:34 | PTCARENOTE ---
Pt had two brief episodes this AM w/ his heart rate in the 120's at rest. Upon assessment pt laying in bed. Denies any feeling of heart racing or palpitations. K 4.7 this am and Mag 2.0. patient goes back into NSR-Sinus clau w/ PACs. Will pass
along to day shift RN. Call mendiola within reach.
[2025-05-26 07:11] VITALS: BP 155/87
[2025-05-26] MEDS: ASPIR LOW (ENTERIC COATED) 81 MG PO (07:44)
[2025-05-26] MEDS: TOPROL XL 25 MG PO (07:44)
--- NOTE | 2025-05-26 09:20 | W.PN.CARDCBS ---
Today's Communication / Plan
-
Sinus rhythm on 05/25/2025, maintaining on telemetry
Increase beta-bay to 25 mg twice daily on discharge
Follow-up with cardiology as outpatient as scheduled
Stable for DC from CV standpoint
Impression / Plan
-
PCP: Dr. Hector
Cardiology: Previously saw Dr. Weber, scheduled to see Dr. Robbins 05/28
Impression:
Presented with tachycardia
Paroxysmal atrial fibrillation w/ RVR, minimally symptomatic
h/o ablation in 2012
s/p watchman implant 08/31/2023
Return to sinus rhythm 05/25/2025 off diltiazem drip
CAD
h/o PTCA of LAD 03/2010
HTN
HLD
Alzheimer's, mild
Plan:
- Recently seen in ER 05/14/2025 with recurrent rapid atrial fibrillation with history of ablation. Has had persistently elevated heart rates, prompting reevaluation in ER 05/24/25 despite OP med adjustments
- Placed on diltiazem drip spontaneous return to sinus rhythm 05/25/2025 maintain rate control with Toprol-XL 25 mg a.m., 12.5 mg p.m.; will recommend changing this to 25 twice daily on discharge
- He is no longer on anticoagulation following watchman implant 08/2023. Reportedly no postop RED confirming adequacy of closure, would require RED/CV as he is no longer on anticoagulation, consider for Tuesday if does not convert spontaneously
- Continue ASA 81 mg alone.
� Echocardiogram as outpatient
- His believes he previously was on Tikosyn for a short time preablation, however was stopped post ablation because he did not need it anymore, no intolerance. He otherwise has not been on antiarrhythmic drug therapy.
- CXR without acute abnormalities
- TSH within normal limits
- Troponin 0.033, no chest pain.
- d/w via telephone. Discussed with nursing
� Stable for DC from CV standpoint, patient has follow-up with primary vice president global digital marketing on Tuesday
HPI: Trung is an 80-year-old male with past medical history of CAD with prior PTCA of the LAD in 2009, hypertension, hyperlipidemia, and paroxysmal atrial fibrillation. He was recently seen in [facility] ER on 05/14/2025 for evaluation of chest
discomfort/tightness. He was found to be in A-fib with RVR. At the time, he was given IV fluids and diltiazem and heart rates improved. His Toprol dose was increased and he was arranged for outpatient cardiology follow-up visit. He has continued
to have elevated heart rates since that time, and came back into ER for evaluation again today, 05/24/2025. Remains in rapid A-fib with heart rate 148 bpm by initial ECG. Minimally symptomatic, however given persistent tachycardia, cardiology
evaluation requested in ER. He was given a dose of 10 mg IV diltiazem and heart rates remain elevated.
Progress Note - College Admissions Counselor
Subjective
Date of Service: May 26, 2025
Patient seen and examined's morning. No acute events overnight. Patient resting comfortably denies any complaints. Denies chest pain, shortness of breath, palpitations, weakness. Telemetry demonstrates sinus rhythm
Objective
Labs:
05/26/25 04:32
05/26/25 04:32
Labs
Hgb 12.5 g/dL (13.0-18.0) L 05/26/25 04:32
Hct 38.5 % (39.0-52.0) L 05/26/25 04:32
Plt Count 111 10^3/uL (130-400) L 05/26/25 04:32
Sodium 138 mmol/L (135-145) 05/26/25 04:32
Potassium 4.7 mmol/L (3.5-5.1) 05/26/25 04:32
BUN 23 mg/dl (9-20) H 05/26/25 04:32
Creatinine 1.2 mg/dL (0.7-1.3) 05/26/25 04:32
Glucose 92 mg/dl (70-99) 05/26/25 04:32
Troponins
05/24/25
16:57
Troponin I 0.033
Vital Signs and I&O:
Vital Signs
Temp Pulse Resp BP Pulse Ox
98.2 F 64 20 155/87 100
05/26/25 07:12 05/26/25 07:11 05/26/25 07:12 05/26/25 07:11 05/26/25 07:47
Vital Signs
Temp Pulse Resp BP Pulse Ox
98.2 F 64 20 155/87 100
05/26/25 07:12 05/26/25 07:11 05/26/25 07:12 05/26/25 07:11 05/26/25 07:47
Intake & Output
05/24/25 05/25/25 05/26/25 05/27/25
06:59 06:59 06:59 06:59
Intake Total 1240 / 1240
Balance 1240 / 1240
Physical Exam
Physical Exam
GEN: No distress, awake, alert, oriented x3. Obese.
HEENT: supple, anicteric, mmm, EOMI
LUNGS: CTA bilaterally, no wheezes/rales
CV: Regular rate and rhythm, S1/S2, no murmur
ABD: soft, BS+, NT/ND
EXT: No cyanosis, clubbing, edema
NEURO: Gross non-focal
SKIN: Warm, pink, dry. No rash
--- NOTE | 2025-05-26 11:26 | W.PN.HOSP.TC ---
Addendum entered and electronically signed by Roberto Hodge MD 05/26/25 15:52:
[id number]
Original Note:
Today's Communication/Plan
-
Aspirin
Increase metoprolol to 25 mg twice daily
Follow-up cardiology outpatient as scheduled on May 28
Follow-up PCP within 1 week
Assessment / Plan
Assessment / Plan
Physical Exam
General: Well Developed, Well Nourished and No Apparent Distress
HEENT: NormoCephalic, Moist mucous membranes and Atraumatic
Respiratory: Clear
Cardiac: S1/S2 and Irregular Rhythm; No Murmur or Rub
GI: Soft, Non Tender, Non Distended and Normal Bowel Sounds; No Organomegaly
Rectal: Deferred by Provider
Musculoskeletal: No Clubbing, No Cyanosis and No Edema
Skin: No Rash
Neuro: AO x 3 and Nonfocal/grossly intact
Paroxysmal atrial fibrillation
�Has converted back to sinus rhythm 05/25, maintaining
�Increase metoprolol 25 mg twice daily
� Follow-up cardiology outpatient as scheduled on May 28
�Continue aspirin
�Not anticoagulation due to Alzheimer infusion medication and watchman
DVT prophylaxis�Lovenox subcu
CODE STATUS�full code
More than 30 minutes spent in discharge including
Final examination of the patient
Summarizing hospital stay
Instructions for continuing care to all relevant caregivers
Preparation of discharge records, prescriptions, and referral forms
Total time spent (in minutes): 37
Anticipated Discharge: Today
Subjective/Interval History
-
Date of Service: May 26, 2025
Converted to sinus rhythm yesterday 05/25
Objective Data
-
Labs:
Laboratory Results
05/26/25
04:32
WBC 7.9
Hgb 12.5 L
Hct 38.5 L
Plt Count 111 L
Sodium 138
Potassium 4.7
Chloride 105
Carbon Dioxide 26
BUN 23 H
Creatinine 1.2
Glucose 92
Calcium 9.1
Total Bilirubin 1.3
AST 20
ALT 21
Alkaline Phosphatase 90
Vital Signs:
Vital Signs
Temp Pulse Resp BP Pulse Ox
98.2 F 68 20 155/87 100
05/26/25 07:12 05/26/25 10:00 05/26/25 07:12 05/26/25 07:11 05/26/25 07:47
I&O
05/25/25 05/26/25 05/27/25
06:59 06:59 06:59
Intake Total 1240 / 1240
Balance 1240 / 1240
Review of Systems
-
History Source: Patient
All other systems: Not reviewed unless documented
Data Reviewed
-
Diagnostic Radiology: Report Reviewed by me
Labs: Labs Reviewed by me
--- NOTE | 2025-05-26 11:31 | W.DS.TRANS ---
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
-
Discharge Instructions:
Discharge Diagnosis/Procedures Paroxysmal atrial fibrillation w/ RVR
Diet Low Cholesterol,Low Fat
Blood Work cbc and bmp in 1 week with pcp
Instructions:
Stand-Alone Forms:
Changes to Home Medications: Yes
Discharge Medications:
DC Medications w/original date entered in [employer]
aspirin 81 mg tablet,delayed release 81 mg PO DAILY 03/30/10
atorvastatin 80 mg tablet (Lipitor) 80 mg PO QPM 05/24/25
cholecalciferol (vitamin D3) 25 mcg (1,000 unit) tablet (Vitamin D3) 25 mcg PO DAILY 05/24/25
lisinopril 10 mg tablet 10 mg PO DAILY 05/24/25
therapeutic multivitamin 1 tab PO DAILY 05/24/25
metoprolol succinate 25 mg tablet,extended release 24 hr (Toprol XL) 25 mg PO BID 30 days #60 tabs 05/26/25
Home Medication Changes
metoprolol succinate 25 mg tablet,extended release 24 hr (Toprol XL) 25 mg PO BID 30 days #60 tabs 05/26/25
Pending Results: No
[2025-05-26 12:19] VITALS: BP 119/75
--- NOTE | 2025-05-26 12:58 | PTCARENOTE ---
D/c to home w/ spouse.
--- NOTE | 2025-05-27 11:25 | CM ---
pt prev indep, lives with his in a 2 sgtory home. no dc planning needs noted.
== END 2025-05-26 12:58 | disposition home or self-care (01) | DRG 310 ==
LOC: IVU 00:32
PROVIDERS: Emergency Medicine; Physician Assistant; ADMITTING PHYSICIAN Internal Medicine; ATTENDING PHYSICIAN Internal Medicine; EMERGENCY PHYSICIAN Emergency Medicine; FAMILY PHYSICIAN Student in an Organized Health Care Education/Training Program; OTHER PHYSICIAN Internal Medicine Cardiovascular Disease
DX: I48.0 Paroxysmal atrial fibrillation (principal); G30.9 Alzheimer's disease, unspecified; I10 Essential (primary) hypertension; I25.10 Atherosclerotic heart disease of native coronary artery without angina pectoris; Z79.82 Long term (current) use of aspirin; E78.00 Pure hypercholesterolemia, unspecified; G47.30 Sleep apnea, unspecified; I47.10 Supraventricular tachycardia, unspecified; I48.92 Unspecified atrial flutter; Z95.5 Presence of coronary angioplasty implant and graft; Z95.818 Presence of other cardiac implants and grafts
CPT/HCPCS: 71046; 80048; 80053; 83735; 84132; 84443; 84484; 85025; 85027; 93005; 96365; 96366; 99285

== ENCOUNTER → 2025-06-18 09:10 | Outpatient (REF) | payer MEDICARE, OTHER, SELFPAY | LOC: HWRCS 09:10 | PROVIDERS: ATTENDING PHYSICIAN Internal Medicine Cardiovascular Disease; FAMILY PHYSICIAN Student in an Organized Health Care Education/Training Program | DX: I48.0 Paroxysmal atrial fibrillation (principal); I25.118 Atherosclerotic heart disease of native coronary artery with other forms of angina pectoris; R94.31 Abnormal electrocardiogram [ECG] [EKG] | CPT/HCPCS: 93306 ==

== ENCOUNTER 2025-06-28 07:04 | Day surgery (SDC) | payer MEDICARE, OTHER, SELFPAY | END 2025-06-28 09:34 | disposition home or self-care (01) | LOC: CATH 07:04 | PROVIDERS: ATTENDING PHYSICIAN Internal Medicine Cardiovascular Disease; FAMILY PHYSICIAN Student in an Organized Health Care Education/Training Program | DX: I08.3 Combined rheumatic disorders of mitral, aortic and tricuspid valves (principal); I77.810 Thoracic aortic ectasia; Z79.82 Long term (current) use of aspirin; Z79.899 Other long term (current) drug therapy; I10 Essential (primary) hypertension; Z86.73 Personal history of transient ischemic attack (TIA), and cerebral infarction without residual deficits | CPT/HCPCS: 93312; 93320; 93325 ==